=== PATIENT | male | born 1965 | race Caucasian/White ===

== ENCOUNTER 2022-06-20 17:12 | Inpatient (IN) ==
[2022-06-20] MEDS ORDERED: ASPIRIN CHEW 324 MG ONE (17:34)
[2022-06-20 17:40] LABS: Basophils # (auto) 0.03 K/uL (0-0.2); Basophils % (auto) 0.4 %; Eosinophils # (auto) 0.07 K/uL (0-0.50); Hematocrit (blood only) 45.7 % (40.1-51.0); Hemoglobin 15.8 g/dl (14.0-18.0); Immature Granulocytes # (auto) 0.02 K/uL (0.00-0.02); Immature Granulocytes % (auto) 0.3 %; Lymphocytes # (auto) 1.43 K/uL (1.2-3.4); Lymphocytes % (auto) 20.7 %; Mean Corpuscular Hemoglobin 35.1 pg (25.0-34.0); Mean Corpuscular Hgb Conc 34.6 g/dL (32.0-36.0); Mean Corpuscular Volume 101.6 fL (80.0-100.0); Mean Platelet Volume 8.4 fL (9.4-12.4); Monocytes # (auto) 0.61 K/uL (0.24-0.82); Monocytes % (auto) 8.8 %; Neutrophils # (auto) 4.75 K/uL (1.4-6.5); Neutrophils % (auto) 68.8 %; Platelet Count 263 K/uL (130-400); RDW Coefficient of Variation 13.1 % (11.5-14.5); RDW Standard Deviation 48.9 fL (36.4-46.3); White Blood Count 6.91 K/ul (4.8-10.8)
[2022-06-20 18:02] LABS: Albumin Globulin Ratio 1.4 (0.9-2); Albumin Level 4.6 gm/dl (3.4-5.0); BUN Creatinine Ratio 15.6 (10-20); Calcium 9.7 mg/dl (8.5-10.1); Creatinine Clr Calc Pharmacy 76.9 ml/min; Est GFR (Non-African American) 61.3 ml/min; Globulin 3.3 gm/dl (2.5-4.0); Potassium 4.3 mmol/L (3.5-5.1); Total Protein 7.9 gm/dl (6.0-8.3)
--- NOTE | 2022-06-20 18:07 | XRay Report ---
XR chest 1V portable CLINICAL HISTORY: Atypical chest pain. COMPARISON STUDY: No previous studies for comparison. FINDINGS: Lung volumes are normal. Minimal right basilar opacity favors atelectasis. There is no pneu mothorax or pleural effusion. Cardiac size is normal. Mediastinal contours are normal. There is no ev idence for pulmonary edema. Postoperative findings within the right shoulder are incidentally noted. IMPRESSION: No acute cardiopulmonary findings. ACT 112: Negative or not required by law. Electronically signed by: Rosalio Kline M.D. 06/20/2022 6:05 PM
--- NOTE | 2022-06-20 20:32 | Emergency Department Note ---
Impression & Plan Acute electrocardiogram changes, Syncope Admit to the [facility] ED Provider Note NAME: CLAUDETTE LARIOS AGE: 57 SEX: M ARRIVES VIA: Ambulance INFORMANT: Patient ED PROVIDER(S): Marilee Bajwa DO CHIEF COMPLAINT: Syncope; nausea PLAN: Disposition: Admit to the [facility] Condition: Guarded MEDICAL DECISION MAKING: This is a 57-year-old male patient presents to the emergency department after an episode of syncope. In route to the hospital, EMS captured a twelve-lead EKG with ST segment elevation in the inferior leads concerning for a STEMI. Upon arrival in the emergency department, those ST segment changes had returned back to baseline. Patient never had chest pressure or chest pain. While I was examining the patient upon his initial arrival and placed on the weir fisherman, he did have ST segment elevation in lead II but this again returned to baseline before a twelve-lead EKG could be captured. Ppatient does have a dramatic family history of coronary artery disease as his father had his first myocardial infarction at age 50 and his brother had four-vessel bypass at age 54. The patient has had 2 stress tests which were both negative. First troponin here in the emergency department is within normal range but I remain concerned about the patient's syncopal event and the twelve-lead EKG captured by EMS. I have discussed the case with the [facility] and they will evaluate for further management. Triage Nursing notes reviewed and agree with them. Additional history obtained from EMS Vital Signs: reviewed and remarkable for mild hypertension Differential diagnosis: Cardiac dysrhythmia, vasovagal syncope, STEMI, NSTEMI ER treatment provided: Baby aspirin Diagnostics interpreted by me: ECG: Normal sinus rhythm at a rate of [address] segment elevation in the inferior leads. Cardiac Monitoring: Normal sinus rhythm at a rate of 72 Laboratory studies: Imaging studies: As per my interpretation Portable chest x-ray: No acute pulmonary infiltrates or cardiomegaly HPI: 57/M arrives for evaluation of syncope. The patient was at a bar when he began to feel sweaty and nauseated. The patient got up to walk to the door when he had a syncopal event. He fell to the ground hitting the right side of his face. Upon awakening, he felt lightheaded and as if he had to have a bowel movement. He went to the bathroom and had diarrhea. The patient continued to feel weak. EMS was called. Upon their arrival, the patient was feeling fine but wanted transport to the hospital. During transport, the patient began to feel nauseated and diaphoretic again. At that time, they did a twelve-lead EKG which showed ST segment elevation in the inferior leads consistent with a STEMI. ROS: See above HPI for pertinent positives & negatives. A total of 10 systems reviewed and were otherwise negative. PAST MEDICAL HISTORY:Hypercholesterolemia; hypertension PAST SURGICAL HISTORY:See Below FAMILY HISTORY:See Below SOCIAL HISTORY:See Below HOME MEDICATIONS:See list ALLERGIES:None VITALS:See Below PHYSICAL EXAMINATION: HEENT: Head - normocephalic and atraumatic. Pupils are equal, round, and reactive to light. Extraocular eye muscles are intact, and sclera are anicteric. Nose - moist nasal mucosa without discharge. Mouth - moist buccal mucosa. Oropharynx is nonerythematous and there is no tonsillar exudate or edema noted. Neck: Supple; no JVD, nuchal rigidity, cervical lymphadenopathy, or auscultated bruits. Heart: Regular rate and rhythm. There is a normal S1 and S2 with no murmurs, clicks, or gallops appreciated. Lungs: Clear to auscultation bilaterally with no wheezes, rales, or rhonchi. Abdomen: Soft, completely nontender, nondistended, with good bowel sounds. There are no palpable pulsatile masses or hepatosplenomegaly. There is no guarding, rigidity, or rebound noted. Extremities: No evidence of cyanosis, clubbing, or edema. There are easily palpable peripheral pulses. Skin: warm and dry with good turgor and no rashes. ED COURSE: Times/Reassessments: 1720: Patient was evaluated in A2. A complete history and physical was performed. While I was examining the patient, it was obvious the patient had significant ST segment elevation in lead II on the monitor. This resolved before we could obtain a twelve-lead EKG. A twelve-lead EKG was obtained. An order was placed for continuous cardiac monitoring. The patient was in a normal sinus rhythm at a rate of 72. Patient was given 4 baby aspirin. A chest x-ray was obtained. The patient had no further episodes of diaphoresis, lightheadedness, or nausea. I discussed the case with the [facility] Hospitalist and they will evaluate for further management. Marilee Bajwa DO Past Med/Surg History Social History Smoking Status: Never smoker Hx Alcohol Use: Yes Alcohol type: beer, wine and hard liquor Hx Substance Use: No Preferred Language: Pakistani Communication Ability: Effective [employer] Aide Required: No Beliefs That Will Affect Care: None Current Living Situation: Spouse Other Information That Helps Us Care for You: No Feels Safe at Home: Yes Safety Concerns: Feels Safe At This Time Assistive Devices: Glasses Allergies Allergies Allergy/AdvReac Type Severity Reaction Status Date / Time No Known Allergies Allergy Unverified 06/20/22 20:16 Home Meds Home Medications Medication Instructions Recorded Confirmed atorvastatin 20 mg tablet 20 mg PO DAILY 06/20/22 06/20/22 duloxetine 30 mg capsule,delayed 30 mg PO DAILY 06/20/22 06/20/22 release fluticasone propionate 50 2 spray intranasal QAM 06/20/22 06/20/22 mcg/actuation nasal spray,suspension furosemide 20 mg tablet 10 mg PO DAILY 06/20/22 06/20/22 losartan 50 mg tablet 50 mg PO QAM 06/20/22 06/20/22 Results & Data (ED) Vital Signs Vital Signs - 24 hr 06/20/22 17:04 06/20/22 17:04 06/20/22 17:04 Temperature 36.8 C Temperature Source Oral Pulse Rate 68 68 Pulse Rate [Apical] Pulse Rate from SpO2 Sensor Pulse Rhythm Regular Respiratory Rate 20 20 Respiratory Effort / Characteristics Non-Labored Respiratory Depth Normal Blood Pressure 148/96 H Blood Pressure [Right Arm] Blood Pressure Mean 113 Blood Pressure Mean [Right Arm] Pulse Oximetry 95 95 95 Oxygen Delivery Method Room Air Room Air Room Air Sepsis Recent Fever Within 48 Hours No Sepsis New/Unexplained Change in Mental Status Yes Sepsis Action Taken by Nursing No Action Required Oxygen Flow Rate - Titration 06/20/22 17:54 06/20/22 17:54 06/20/22 18:59 Temperature Temperature Source Pulse Rate 87 70 Pulse Rate [Apical] Pulse Rate from SpO2 Sensor 70 Pulse Rhythm Regular Respiratory Rate 20 24 Respiratory Effort / Characteristics Respiratory Depth Blood Pressure Blood Pressure [Right Arm] Blood Pressure Mean Blood Pressure Mean [Right Arm] Pulse Oximetry 95 96 95 Oxygen Delivery Method Room Air Room Air Sepsis Recent Fever Within 48 Hours Sepsis New/Unexplained Change in Mental Status Sepsis Action Taken by Nursing Oxygen Flow Rate - Titration 2 06/20/22 19:00 06/20/22 20:00 Temperature Temperature Source Pulse Rate Pulse Rate [Apical] 72 Pulse Rate from SpO2 Sensor Pulse Rhythm Respiratory Rate 20 Respiratory Effort / Characteristics Non-Labored Respiratory Depth Normal Blood Pressure 159/94 H Blood Pressure [Right Arm] 152/94 H Blood Pressure Mean 115 Blood Pressure Mean [Right Arm] 113 Pulse Oximetry 96 Oxygen Delivery Method Room Air Sepsis Recent Fever Within 48 Hours Sepsis New/Unexplained Change in Mental Status Sepsis Action Taken by Nursing Oxygen Flow Rate - Titration Laboratory Data Result diagrams: 06/21/22 06:09 06/21/22 06:09 Lab Results 06/20/22 06/20/22 06/20/22 Range/Units 17:25 17:25 17:25 WBC 6.91 (4.8-10.8) K/ul RBC 4.50 L (4.63-6.08) M/uL Hgb 15.8 (14.0-18.0) g/dl Hct 45.7 (40.1-51.0) % MCV 101.6 H (80.0-100.0) fL MCH 35.1 H (25.0-34.0) pg MCHC 34.6 (32.0-36.0) g/dL RDW Std Deviation 48.9 H (36.4-46.3) fL RDW Coeff of Kathleen 13.1 (11.5-14.5) % Plt Count 263 (130-400) K/uL MPV 8.4 L (9.4-12.4) fL Immature Gran % (Auto) 0.3 % Neut % (Auto) 68.8 % Lymph % (Auto) 20.7 % Jewell % (Auto) 8.8 % Eos % (Auto) 1.0 % Baso % (Auto) 0.4 % Neut # (Auto) 4.75 (1.4-6.5) K/uL Lymph # (Auto) 1.43 (1.2-3.4) K/uL Jewell # (Auto) 0.61 (0.24-0.82) K/uL Eos # (Auto) 0.07 (0-0.50) K/uL Baso # (Auto) 0.03 (0-0.2) K/uL Immature Gran # (Auto) 0.02 (0.00-0.02) K/uL Sodium 138 (136-145) mmol/L Potassium 4.3 (3.5-5.1) mmol/L Chloride 102 (98-107) mmol/L Carbon Dioxide 26 (21-32) mmol/L Anion Gap 10 (3-11) BUN 20 (6-23) mg/dl Creatinine 1.28 (0.6-1.4) mg/dl Est Cr Clr Drug Dosing 76.9 ml/min Est GFR ( Amer) 71.0 ml/min Est GFR (Non-Af Amer) 61.3 ml/min BUN/Creatinine Ratio 15.6 (10-20) Glucose 129 H (70-99(Fasting)) mg/dl Calcium 9.7 (8.5-10.1) mg/dl Magnesium 1.9 (1.7-2.4) mg/dl Total Bilirubin 1.0 (0.2-1.0) mg/dl AST 39 (13-39) U/L ALT 55 H (7-52) U/L Alkaline Phosphatase 81 (34-104) U/L Troponin I High Sens 18.0 (0-20) pg/ml Total Protein 7.9 (6.0-8.3) gm/dl Albumin 4.6 (3.4-5.0) gm/dl Globulin 3.3 (2.5-4.0) gm/dl Albumin/Globulin Ratio 1.4 (0.9-2) Lipase 36 (11-82) U/L SARS-CoV-2, RNA, NAAT (NEGATIVE) 06/20/22 06/20/22 Range/Units 19:15 20:37 WBC (4.8-10.8) K/ul RBC (4.63-6.08) M/uL Hgb (14.0-18.0) g/dl Hct (40.1-51.0) % MCV (80.0-100.0) fL MCH (25.0-34.0) pg MCHC (32.0-36.0) g/dL RDW Std Deviation (36.4-46.3) fL RDW Coeff of Kathleen (11.5-14.5) % Plt Count (130-400) K/uL MPV (9.4-12.4) fL Immature Gran % (Auto) % Neut % (Auto) % Lymph % (Auto) % Jewell % (Auto) % Eos % (Auto) % Baso % (Auto) % Neut # (Auto) (1.4-6.5) K/uL Lymph # (Auto) (1.2-3.4) K/uL Jewell # (Auto) (0.24-0.82) K/uL Eos # (Auto) (0-0.50) K/uL Baso # (Auto) (0-0.2) K/uL Immature Gran # (Auto) (0.00-0.02) K/uL Sodium (136-145) mmol/L Potassium (3.5-5.1) mmol/L Chloride (98-107) mmol/L Carbon Dioxide (21-32) mmol/L Anion Gap (3-11) BUN (6-23) mg/dl Creatinine (0.6-1.4) mg/dl Est Cr Clr Drug Dosing ml/min Est GFR ( Amer) ml/min Est GFR (Non-Af Amer) ml/min BUN/Creatinine Ratio (10-20) Glucose (70-99(Fasting)) mg/dl Calcium (8.5-10.1) mg/dl Magnesium (1.7-2.4) mg/dl Total Bilirubin (0.2-1.0) mg/dl AST (13-39) U/L ALT (7-52) U/L Alkaline Phosphatase (34-104) U/L Troponin I High Sens 17.9 (0-20) pg/ml Total Protein (6.0-8.3) gm/dl Albumin (3.4-5.0) gm/dl Globulin (2.5-4.0) gm/dl Albumin/Globulin Ratio (0.9-2) Lipase (11-82) U/L SARS-CoV-2, RNA, NAAT NEGATIVE (NEGATIVE) Administered Medications Atorvastatin Calcium (Atorvastatin 20 Mg Tab) 20 mg PO DAILY [facility]NA Stop: 07/21/22 08:59 Last Admin: 06/21/22 09:26 Dose: 20 mg Documented By: CADENCE Duloxetine HCl (Duloxetine Hcl 30 Mg Cap) 30 mg PO DAILY AMNA Stop: 07/21/22 08:59 Last Admin: 06/21/22 09:27 Dose: 30 mg Documented By: CADENCE Fluticasone Propionate (Fluticasone Propionate Na Spr 16 Gm Btl) 2 sprays NA QAM [facility] Stop: 07/21/22 08:59 Last Admin: 06/21/22 09:27 Dose: 2 sprays Documented By: CADENCE Furosemide (Furosemide 20 Mg Tab) 10 mg PO DAILY [facility] Stop: 07/21/22 08:59 Last Admin: 06/21/22 09:27 Dose: 10 mg Documented By: CADENCE Heparin Sodium/Dextrose (Heparin Sodium/Dextrose) 25,000 units in 500 mls @ 0 mls/hr IV .Q0M AMNA; Protocol Stop: 07/20/22 22:14 Last Titration: 06/21/22 11:29 Dose: 0 units/hr, 0 mls/hr Documented By: CADENCE Co-signed By: ELVA Titration: 06/21/22 09:31 Dose: 0 units/hr, 0 mls/hr Documented By: CADENCE Co-signed By: ELVA Titration: 06/21/22 06:58 Dose: 1,550 units/hr, 31 mls/hr Documented By: TORRES Co-signed By: CADENCE Admin: 06/20/22 23:33 Dose: 1,550 units/hr, 31 mls/hr Documented By: TORRES Co-signed By: VK Sodium Chloride (Nss 1000ml) 1,000 mls @ 80 mls/hr IV .[id number] [facility] Stop: 06/21/22 23:44 Last Infusion: 06/21/22 11:21 Dose: 80 mls/hr Documented By: Infusion: 06/21/22 09:30 Dose: 0 mls/hr Documented By: Admin: 06/20/22 23:41 Dose: 80 mls/hr Documented By: TORRES Losartan Potassium (Losartan Potassium 50 Mg Tab) 50 mg PO QAM [facility] Stop: 07/21/22 08:59 Last Admin: 06/21/22 09:28 Dose: 50 mg Documented By: CADENCE Discontinued Medications Aspirin (Aspirin Chew 324 Mg) Confirm Administered Dose 324 mg .ROUTE .STK-MED ONE Stop: 06/20/22 17:35 Last Admin: 06/20/22 17:34 Dose: 324 mg Documented By: MARY Fentanyl Citrate (Fentanyl Citrate 100 Mcg/2 Ml Vial) Confirm Administered Dose 100 mcg .ROUTE .STK-MED ONE Stop: 06/21/22 10:04 Last Increment: 06/21/22 10:29 Dose: 12.5 mcg Documented By: LIZBETH Heparin Sodium (Porcine) (Heparin Sod (Porcine) 1000 Unit/Ml) 7,000 units IV NOW ONE Stop: 06/20/22 22:46 Last Admin: 06/20/22 23:35 Dose: 7,000 units Documented By: [facility] Co-signed By: MANSOOR Heparin Sodium (Porcine) (Heparin (Porcine) 1000 Unit/Ml 10 Ml (Dental Aide Use Only)) Confirm Administered Dose 10,000 units .ROUTE .STK-MED ONE Stop: 06/21/22 10:03 Last Admin: 06/21/22 10:28 Dose: Not Given Documented By: LIZBETH Heparin Sodium/Sodium Chloride (Heparin In Nss Infusion 1000 Unit/500 Ml (2 U/Ml) Bag) Confirm Administered Dose 3,000 units IV .STK-MED ONE Stop: 06/21/22 10:04 Last Admin: 06/21/22 10:29 Dose: 3,000 units Documented By: LIZBETH Midazolam HCl (Midazolam Hcl 1 Mg/Ml 2ml Vial) Confirm Administered Dose 2 mg .ROUTE .STK-MED ONE Stop: 06/21/22 10:04 Last Increment: 06/21/22 10:29 Dose: 1 mg Documented By: LIZBETH Nicardipine HCl (Nicardipine Hcl Inj 2.5 Mg/Ml 10 Ml Amp) Confirm Administered Dose 25 mg .ROUTE .STK-MED ONE Stop: 06/21/22 10:03 Last Admin: 06/21/22 10:29 Dose: 25 mg Documented By: LIZBETH Nitroglycerin/Dextrose (Nitroglycerin/D5w 100mcg/Ml 20ml Syr) Confirm Administe red Dose 2,000 mcg .ROUTE .STK-MED ONE Stop: 06/21/22 10:04 Last Admin: 06/21/22 10:29 Dose: 2,000 mcg Documented By: MSD Imaging Data Radiologist's Impression: Chest X-Ray 06/20/22 17:25 XR chest 1V portable CLINICAL HISTORY: Atypical chest pain. COMPARISON STUDY: No previous studies for comparison. FINDINGS: Lung volumes are normal. Minimal right basilar opacity favors atelectasis. There is no pneumothorax or pleural effusion. Cardiac size is normal. Mediastinal contours are normal. There is no evidence for pulmonary edema. Postoperative findings within the right shoulder are incidentally noted. IMPRESSION: No acute cardiopulmonary findings. ACT 112: Negative or not required by law. Electronically signed by: Rosalio Kline M.D. 06/20/2022 6:05 PM Discharge Plan Visit Data Chief Complaint: Syncope Stated Complaint: syncope ED Provider: Marilee Bajwa Discharge Problem: Acute electrocardiogram changes, Syncope Patient Disposition: Admitted As Inpatient Discharge Instructions Interventions: ED Discharge Assessment Last Done: 06/20/22 21:56
[2022-06-20] MEDS ORDERED: Heparin IV Adult Wt-Based Standard WITH Bolus Protocol IV SCH (21:49)
[2022-06-20] MEDS ORDERED: HEPARIN SODIUM/DEXTROSE 25,000 UNITS/500 ML BAG IV SCH (22:15)
[2022-06-20 22:27] LABS: INR 1.2 (0.9-1.1); Partial Thromboplastin Ratio 0.9; Partial Thromboplastin Time 24.8 Seconds (21.0-31.0); Prothrombin Time 12.3 Seconds (9.0-12.0)
[2022-06-20] MEDS ORDERED: HEPARIN SOD (PORCINE) 1000 UNIT/ML IV ONE (22:45)
[2022-06-20] MEDS ORDERED: ACETAMINOPHEN 325 MG TAB PO PRN (22:45)
[2022-06-20] MEDS ORDERED: NITROGLYCERIN SL 0.4 MG/TAB TAB SL PRN (22:45)
[2022-06-20] MEDS ORDERED: ONDANSETRON INJ 2 MG/ML 2 ML VIAL IV PRN (22:45)
--- NOTE | 2022-06-20 22:59 | History and Physical Report ---
DATE OF ADMISSION: 06/20/2022. CHIEF COMPLAINT: Syncope. HISTORY OF PRESENT ILLNESS: This is a 57-year-old male with past medical history significant for allergic rhinitis, GERD, who presents with syncope. The patient says he was at a bar when he felt nauseous and diaphoretic. He went out and sat in chair when he suddenly remembered people helping him, made him lie down, someone told him that he was clenching his fist. Then he had an episode of diarrhea. The EMS was called in and he was on the way again felt nauseous and sweating. The EMS told him that his blood pressure was low, got an EKG, showed some ST elevations in the inferior leads and when he came to the ER, in the monitor, there were some ST elevations, by the time the EKG was done St elevations were improving. The patient is currently asymptomatic, resting comfortably, hemodynamically stable. Denies any headache. No dizziness, no blurred visions, no double visions, no earache, no runny nose, no sore throat, no cough, no difficulty swallowing. Appetite is okay. No chest pain, no shortness of breath. Currently, no nausea, no abdominal pain. Normal bowel and bladder movements. No swelling in the legs. No orthopnea. Otherwise, ambulates okay. The patient says he has stress test before the pandemic, which was unremarkable. He also had cardiac CT in January 2021, which showed some focal calcified plaque with luminal stenosis in the range of 20-30% in the mid LAD and proximal circumflex coronary artery, focal calcified plaques in the range of 20- 30%.Family history is significant for father had ID in his 50s and brother had CABG. ALLERGIES: No known drug allergies. PAST MEDICAL HISTORY: As mentioned above. PAST SURGICAL HISTORY: Colonoscopy, lumbosacral steroid shot, knee arthroscopy, repair of shoulder dislocation. MEDICATIONS: The patient is on atorvastatin 20 mg p.o. daily, duloxetine 30 mg p.o. daily, Flonase 2 sprays intranasal daily, Lasix 20 mg p.o. daily, losartan 50 mg p.o. daily. FAMILY HISTORY: Significant for father had ID in the late 50s. Brother had CABG. Mother had cancer and stroke. Maternal grandmother had diabetes. SOCIAL HISTORY: , no smoking. Alcohol, daily beer. No drug use. REVIEW OF SYSTEMS: As per HPI. Rest of the review of systems is negative. PHYSICAL EXAMINATION: GENERAL: The patient is of moderate build, not in acute distress. VITAL SIGNS: Temperature 36.8, pulse 72, respiratory rate 20, blood pressure 152/94, oxygen 96% on room air. HEENT: Pupils equal, round and reactive to light. Oral mucosa moist. NECK: No JVD, no neck masses. CARDIOVASCULAR: S1 and S2 heard. Regular rate and rhythm. No murmur, no gallop. RESPIRATORY SYSTEM: Normal AP diameter. No accessory muscle use. No wheezing, no crackles. ABDOMEN: Soft, bowel sounds present, nontender, no distention. CENTRAL NERVOUS SYSTEM: Cranial nerves II-XII grossly intact, nonfocal. EXTREMITIES: No edema, no erythema. LABORATORY DATA: WBC 6.9, hemoglobin 15.8, hematocrit 45.7, platelets 263. Sodium 138, potassium 4.3, chloride 102, bicarbonate 26, BUN 20, creatinine 1.2, serum glucose 129, calcium 9.7, magnesium 1.9, total bilirubin 1.0. AST 39, ALT 55, alkaline phosphatase 81, lipase 36. SARS-CoV-2 rapid test negative. IMAGING DATA: Chest x-ray, no acute cardiopulmonary findings. EKG: Showing normal sinus rhythm at a rate of 72, nonspecific ST abnormalities. ASSESSMENT AND PLAN: This is a 57-year-old male who presents with syncope and ST changes. 1. Syncope: , Gentle fluids.monitor in tele, serial enzymes, echo, and consult cardiology. 2. Transient ST-elevation in inferior leads: St elevations for EMS. Initial ekg st elevations were still some what present but improving. repeat EKG much improved. Cardiology recommended iv heparin. . The patient is asymptomatic. Troponin is negative. Follow serial cardiac enzymes.NPO. Echo and cardiac cath as per cardiology. 4. Hyperlipidemia: Continue statin. Follow lipid profile. 5. Depression: Continue duloxetine. 6. Hypertension: On losartan. We will monitor the blood pressure. 7. Deep venous thrombosis prophylaxis: SCDs for now. DISPOSITION: Admit to tele floor. PT, OT prior to discharge. Social service to help with discharge planning. Job ID: [id number] [facility]
[2022-06-20] MEDS: SODIUM CHLORIDE 0.9% 1000ML 1,000 ML IV SCH (23:41)
[2022-06-21 06:43] LABS: Basophils # (auto) 0.02 K/uL (0-0.2); Basophils % (auto) 0.3 %; Eosinophils # (auto) 0.13 K/uL (0-0.50); Hematocrit (blood only) 42.4 % (40.1-51.0); Hemoglobin 14.8 g/dl (14.0-18.0); Immature Granulocytes # (auto) 0.02 K/uL (0.00-0.02); Immature Granulocytes % (auto) 0.3 %; Lymphocytes # (auto) 1.58 K/uL (1.2-3.4); Lymphocytes % (auto) 24.6 %; Mean Corpuscular Hemoglobin 35.6 pg (25.0-34.0); Mean Corpuscular Hgb Conc 34.9 g/dL (32.0-36.0); Mean Corpuscular Volume 101.9 fL (80.0-100.0); Mean Platelet Volume 8.6 fL (9.4-12.4); Monocytes # (auto) 0.52 K/uL (0.24-0.82); Monocytes % (auto) 8.1 %; Neutrophils # (auto) 4.16 K/uL (1.4-6.5); Neutrophils % (auto) 64.7 %; Platelet Count 254 K/uL (130-400); RDW Coefficient of Variation 13.3 % (11.5-14.5); RDW Standard Deviation 50.3 fL (36.4-46.3); Red Blood Count 4.16 M/uL (4.63-6.08); White Blood Count 6.43 K/ul (4.8-10.8)
[2022-06-21 07:03] LABS: BUN Creatinine Ratio 19.4 (10-20); Calcium 8.7 mg/dl (8.5-10.1); Chol HDL Ratio 3.6 (0-5); Creatinine Clr Calc Pharmacy 94.3 ml/min; Est GFR (African American) 92.4 ml/min; Est GFR (Non-African American) 79.7 ml/min; Magnesium 1.9 mg/dl (1.7-2.4); Potassium 3.8 mmol/L (3.5-5.1)
[2022-06-21 07:06] LABS: Troponin I High Sensitivity 16.9 pg/ml (0-20)
[2022-06-21 07:10] LABS: Partial Thromboplastin Ratio 2.2
[2022-06-21 07:13] LABS: Partial Thromboplastin Time 60.3 Seconds (21.0-31.0)
--- NOTE | 2022-06-21 08:43 | Electrocardiogram Report ---
Test Reason : Blood Pressure : / mmHG Vent. Rate : 074 BPM Atrial Rate : 074 BPM P-R Int : 118 ms QRS Dur : 098 ms QT Int : 412 ms P-R-T Axes : 032 065 057 degrees QTc Int : 457 ms Poor data quality, interpretation may be adversely affected Sinus rhythm with Premature supraventricular complexes and Premature ventricular complexes Abnormal ECG No previous ECGs available Confirmed by Bairon Seo ([id number]) on 06/21/2022 8:43:09 AM Referred By: REFERRED SELF Confirmed By:Bairon Seo
--- NOTE | 2022-06-21 08:45 | Electrocardiogram Report ---
Test Reason : Blood Pressure : / mmHG Vent. Rate : 072 BPM Atrial Rate : 072 BPM P-R Int : 134 ms QRS Dur : 098 ms QT Int : 418 ms P-R-T Axes : 024 051 067 degrees QTc Int : 457 ms Normal sinus rhythm Minor ST elevation in Inferior leads Abnormal ECG When compared with ECG of 20-JUN-2022 17:16, Premature supraventricular complexes are no longer Present Premature ventricular complexes no longer present Confirmed by Bairon Seo ([id number]) on 06/21/2022 8:45:23 AM Referred By: REFERRED SELF Confirmed By:Bairon Seo
--- NOTE | 2022-06-21 08:47 | Electrocardiogram Report ---
Test Reason : Blood Pressure : / mmHG Vent. Rate : 074 BPM Atrial Rate : 074 BPM P-R Int : 166 ms QRS Dur : 092 ms QT Int : 464 ms P-R-T Axes : 056 036 047 degrees QTc Int : 515 ms Poor data quality, interpretation may be adversely affected Sinus rhythm with Premature atrial complexes Minor ST elevation in Inferior leads Abnormal ECG When compared with ECG of 20-JUN-2022 17:34, Premature atrial complexes are now Present Confirmed by Bairon Seo ([id number]) on 06/21/2022 8:46:39 AM Referred By: REFERRED SELF Confirmed By:Bairon Seo
--- NOTE | 2022-06-21 08:49 | Electrocardiogram Report ---
Test Reason : Blood Pressure : / mmHG Vent. Rate : 068 BPM Atrial Rate : 068 BPM P-R Int : 144 ms QRS Dur : 098 ms QT Int : 436 ms P-R-T Axes : 033 039 050 degrees QTc Int : 463 ms Normal sinus rhythm Normal ECG When compared with ECG of 20-JUN-2022 21:57, Premature atrial complexes are no longer Present Minor ST elevation in Inferior leads no longer present Confirmed by Bairon Seo ([id number]) on 06/21/2022 8:49:03 AM Referred By: REFERRED SELF Confirmed By:Bairon Seo
[2022-06-21] MEDS: ATORVASTATIN 20 MG TAB PO SCH (09:26)
[2022-06-21] MEDS: FUROSEMIDE 20 MG TAB PO SCH (09:27)
[2022-06-21] MEDS: DULoxetine HCL 30 MG CAP PO SCH (09:27)
[2022-06-21] MEDS: FLUTICASONE PROPIONATE NA SPR 16 GM BTL SCH (09:27)
[2022-06-21] MEDS: LOSARTAN POTASSIUM 50 MG TAB PO SCH (09:28)
--- NOTE | 2022-06-21 09:53 | Pre Anesthesia Assessment ---
Date of Service June 21, 2022 Pre Sedation Assessment Vital Signs Temp Pulse Pulse Resp BP BP Pulse Ox 06/21/22 09:47 70 16 132/85 98 06/21/22 07:00 67 06/21/22 07:39 36.9 C 74 18 163/90 H 99 06/21/22 03:30 36.6 C 70 18 129/84 97 06/21/22 01:36 72 06/20/22 22:48 36.9 C 79 18 154/90 H 96 06/20/22 22:06 76 20 96 06/20/22 21:56 78 20 149/105 H 96 06/20/22 20:00 72 20 152/94 H 96 06/20/22 19:00 159/94 H 06/20/22 18:59 70 24 95 06/20/22 17:54 96 06/20/22 17:54 87 20 95 06/20/22 17:04 95 06/20/22 17:04 68 20 95 06/20/22 17:04 36.8 C 68 20 148/96 H 95 O2 Del Method 06/21/22 09:47 Room Air 06/21/22 07:00 06/21/22 07:39 Room Air 06/21/22 03:30 06/21/22 01:36 06/20/22 22:48 Room Air 06/20/22 22:06 Room Air 06/20/22 21:56 Room Air 06/20/22 20:00 Room Air 06/20/22 19:00 06/20/22 18:59 06/20/22 17:54 Room Air 06/20/22 17:54 Room Air 06/20/22 17:04 Room Air 06/20/22 17:04 Room Air 06/20/22 17:04 Room Air Cardiovascular RRR, no murmur, no edema Respiratory normal respiratory effort, lungs clear to auscultation Pre-Sedation Airway Assessment Smoking Status: Never smoker Short, Thick Neck: No Thyromental Distance: > or= 3.5 Finger Breadths Oral Cavity: + WNL Mallampati Class: III ASA: ASA3 NPO Status Date of Last Intake of Fluids: 06/20/22 Time of Last Intake of Fluids: 20:00 Date of Last Intake of Solid Food: 06/20/22 Time of Last Intake of Solid Foods: 20:00 Procedure Planning Contraindications for Sedation: none Current Medications Reviewed: Yes Notes The planned sedation has been discussed with the patient. Informed Consent was obtained. I have identified the patient, determined the appropriateness of sedation and have assessed the patient immediately prior to the procedure. All medicine(s) and interventions are by my order.
[2022-06-21] MEDS ORDERED: HEPARIN (PORCINE) 1000 UNIT/ML 10 ML (CATH LAB USE ONLY) ONE (10:02)
[2022-06-21] MEDS ORDERED: niCARdipine HCL INJ 2.5 MG/ML 10 ML AMP ONE (10:02)
[2022-06-21] MEDS ORDERED: MIDAZOLAM HCL 1 MG/ML 2ML VIAL ONE (10:03)
[2022-06-21] MEDS ORDERED: NITROGLYCERIN/D5W 100MCG/ML 20ML SYR ONE (10:03)
[2022-06-21] MEDS ORDERED: fentaNYL citrate 100 MCG/2 ML VIAL ONE (10:03)
--- NOTE | 2022-06-21 10:05 | Cardiology Consultation ---
Date of Consultation June 21, 2022 Assessment & Plan (1) ST elevation: (2) HTN (hypertension): (3) Hyperlipidemia: Plan Patient is a 57-year-old male with multiple cardiovascular risk factors including age gender family history hypertension hyperlipidemia and known moderate coronary atherosclerosis by prior coronary CT presents following syncopal spell preceded by chest pressure and diaphoresis. In route and ambulance had transient dynamic ST segment changes with ST elevation in inferior leads and ambulance and shortly after arrival in ER which promptly resolved. Findings concerning for acute coronary process. Coronary spasm or chronic vessel occlusion with transient hypotension possible but suspicious for coronary artery disease despite negative troponins Discussed in detail with patient will refer for diagnostic coronary angiography. Procedure and risks explained in detail to the patient and informed consent obtained. History of Present Illness Reason for Consultation: Syncope, abnormal EKG telemetry with ST elevation Requesting Physician: Dr. Flores Attending Physician: Bradley Flores MD History of Present Illness Patient is a 57-year-old male with history of hypertension, hyperlipidemia, moderate coronary atherosclerosis by prior coronary CT and family history of coronary artery disease who last night suffered a witnessed syncopal event while drinking at a bar. He noted initial symptoms of chest pressure and indigestion and diaphoresis attempted to walk out and suffered a transient syncopal event. He aroused with generalized weakness and malaise and paramedics were summoned. He had an additional episode of diaphoresis and nausea in route and ambulance with associated ST elevation on EKG. On ER presentation, telemetry also notable for ST elevation which resolved after aspirin administration. Currently comfortable notes no chest pains, tachypalpitations, syncope or near syncope. No fevers chills or unexplained infections. No prior difficulties with contrast administration. No history of prior myocardial infarction or congestive heart failure. No history of valvular heart disease. Patient is not diabetic No upcoming surgeries or plans for procedures Patient relatively sedate about home and job history notable for significant alcohol intake 6 pack or greater /day daily EKG on initial ER presentation with [address] elevation 2 3 and aVF which resolved. No evolution on EKGs this morning. Troponins initially negative. Patient appropriately anticoagulated Allergies Allergy/AdvReac Type Severity Reaction Status Date / Time No Known Allergies Allergy Unverified 06/20/22 20:16 Home Medications Medication Instructions Recorded Confirmed Type atorvastatin 20 mg tablet 20 mg PO DAILY 06/20/22 06/20/22 History duloxetine 30 mg capsule,delayed 30 mg PO DAILY 06/20/22 06/20/22 History release fluticasone propionate 50 2 spray intranasal QAM 06/20/22 06/20/22 History mcg/actuation nasal spray,suspension furosemide 20 mg tablet 10 mg PO DAILY 06/20/22 06/20/22 History losartan 50 mg tablet 50 mg PO QAM 06/20/22 06/20/22 History Patient History Social History Smoking Status: Never smoker Hx Alcohol Use: Yes Alcohol type: beer, wine and hard liquor Hx Substance Use: No Preferred Language: Georgian Communication Ability: Effective Chlorination Operator Required: No Beliefs That Will Affect Care: None Current Living Situation: Spouse Other Information That Helps Us Care for You: No Feels Safe at Home: Yes Safety Concerns: Feels Safe At This Time Assistive Devices: Glasses Review of Systems Review of Systems: All systems reviewed & are unremarkable except as noted in HPI & below Physical Exam Constitutional: WD/WN, vitals as above + obese Face flushed Eyes: PERRL, conjunctivae normal, anicteric sclerae ENMT: external ear and nose normal, oropharynx normal Mild contusion right tenriism Neck: trachea midline, no thyromegaly Respiratory: normal respiratory effort, lungs clear to auscultation Cardiovascular: Rate/Rhythm: regular rate and regular rhythm Heart Sounds: normal S1 and normal S2; no gallop and no murmur Palpation: normal PMI Vessels: normal carotid upstroke and radial pulses present; no JVD and no carotid bruit Extremities: no edema Gastrointestinal (Abdomen): normal bowel sounds, soft, nontender, no hepatosplenomegaly Musculoskeletal: no cyanosis or clubbing, extremities motor strength 5/5 Skin: no rashes, warm and dry Neurologic: PERRL, EOMI, accommodation nl, no face palsy, no dysarthria Psychiatric: A+Ox3, euthymic affect Results & Data ([facility]) Vital Signs (Past 12 Hours) Vital Signs Temp Pulse Pulse Resp BP Pulse Ox O2 Del Method 06/21/22 09:47 70 16 132/85 98 Room Air 06/21/22 07:00 67 06/21/22 07:39 36.9 C 74 18 163/90 H 99 Room Air 06/21/22 03:30 36.6 C 70 18 129/84 97 06/21/22 01:36 72 06/20/22 22:48 36.9 C 79 18 154/90 H 96 Room Air 06/20/22 22:06 76 20 96 Room Air Laboratory Results Laboratory Results - last 24 hr 06/20/22 06/20/22 06/20/22 17:25 17:25 17:25 WBC 6.91 RBC 4.50 L Hgb 15.8 Hct 45.7 MCV 101.6 H MCH 35.1 H MCHC 34.6 RDW Std Deviation 48.9 H RDW Coeff of Kathleen 13.1 Plt Count 263 MPV 8.4 L Immature Gran % (Auto) 0.3 Neut % (Auto) 68.8 Lymph % (Auto) 20.7 Garfield % (Auto) 8.8 Eos % (Auto) 1.0 Baso % (Auto) 0.4 Neut # (Auto) 4.75 Lymph # (Auto) 1.43 Garfield # (Auto) 0.61 Eos # (Auto) 0.07 Baso # (Auto) 0.03 Immature Gran # (Auto) 0.02 PT INR APTT PTT Ratio Sodium 138 Potassium 4.3 Chloride 102 Carbon Dioxide 26 Anion Gap 10 BUN 20 Creatinine 1.28 Est Cr Clr Drug Dosing 76.9 Est GFR ( Amer) 71.0 Est GFR (Non-Af Amer) 61.3 BUN/Creatinine Ratio 15.6 Glucose 129 H Calcium 9.7 Magnesium 1.9 Total Bilirubin 1.0 AST 39 ALT 55 H Alkaline Phosphatase 81 Troponin I High Sens 18.0 Total Protein 7.9 Albumin 4.6 Globulin 3.3 Albumin/Globulin Ratio 1.4 Triglycerides Cholesterol LDL Cholesterol, Calc VLDL Cholesterol, Calc HDL Cholesterol Cholesterol/HDL Ratio Lipase 36 SARS-CoV-2, RNA, NAAT 06/20/22 06/20/22 06/20/22 19:15 20:37 22:00 WBC RBC Hgb Hct MCV MCH MCHC RDW Std Deviation RDW Coeff of Kathleen Plt Count MPV Immature Gran % (Auto) Neut % (Auto) Lymph % (Auto) Garfield % (Auto) Eos % (Auto) Baso % (Auto) Neut # (Auto) Lymph # (Auto) Garfield # (Auto) Eos # (Auto) Baso # (Auto) Immature Gran # (Auto) PT 12.3 H INR 1.2 H APTT 24.8 PTT Ratio 0.9 Sodium Potassium Chloride Carbon Dioxide Anion Gap BUN Creatinine Est Cr Clr Drug Dosing Est GFR ( Amer) Est GFR (Non-Af Amer) BUN/Creatinine Ratio Glucose Calcium Magnesium Total Bilirubin AST ALT Alkaline Phosphatase Troponin I High Sens 17.9 Total Protein Albumin Globulin Albumin/Globulin Ratio Triglycerides Cholesterol LDL Cholesterol, Calc VLDL Cholesterol, Calc HDL Cholesterol Cholesterol/HDL Ratio Lipase SARS-CoV-2, RNA, NAAT NEGATIVE 06/21/22 06/21/22 06/21/22 06:09 06:09 06:09 WBC 6.43 RBC 4.16 L Hgb 14.8 Hct 42.4 MCV 101.9 H MCH 35.6 H MCHC 34.9 RDW Std Deviation 50.3 H RDW Coeff of Kathleen 13.3 Plt Count 254 MPV 8.6 L Immature Gran % (Auto) 0.3 Neut % (Auto) 64.7 Lymph % (Auto) 24.6 Garfield % (Auto) 8.1 Eos % (Auto) 2.0 Baso % (Auto) 0.3 Neut # (Auto) 4.16 Lymph # (Auto) 1.58 Garfield # (Auto) 0.52 Eos # (Auto) 0.13 Baso # (Auto) 0.02 Immature Gran # (Auto) 0.02 PT INR APTT 60.3 H* PTT Ratio 2.2 Sodium 137 Potassium 3.8 Chloride 104 Carbon Dioxide 25 Anion Gap 8 BUN 20 Creatinine 1.03 Est Cr Clr Drug Dosing 94.3 Est GFR ( Amer) 92.4 Est GFR (Non-Af Amer) 79.7 BUN/Creatinine Ratio 19.4 Glucose 118 H Calcium 8.7 Magnesium 1.9 Total Bilirubin AST ALT Alkaline Phosphatase Troponin I High Sens 16.9 Total Protein Albumin Globulin Albumin/Globulin Ratio Triglycerides 89 Cholesterol 197 LDL Cholesterol, Calc 124 VLDL Cholesterol, Calc 18 HDL Cholesterol 55 Cholesterol/HDL Ratio 3.6 Lipase SARS-CoV-2, RNA, NAAT
--- NOTE | 2022-06-21 10:43 | Cardiac Catheterization ---
Cardiac Cath Procedure Brief Procedure Date June 21, 2022 Pre-Procedure Diagnosis Pre-Procedure Diagnosis: Angina AUC Score AUC Score: 7 Post-Procedure Diagnosis Post-Procedure Diagnosis: Mild CAD and Normal LV Systolic Function Procedure(s) Performed Procedure(s) Performed: Coronary Angiography, Left Heart Cath and LV Angiography Picture Enlarger Wellington Graves MD Estimated Blood Loss Estimated Blood Loss: <15cc Medication(s) Medication(s): Fentanyl (12.5 mcg IV), Heparin (5000 units IV), Lidocaine 1% (Local infiltration access site), Nicardipine (250 mcg intra-arterial after arterial sheath insertion) and Versed (1 mg IV) Preliminary Findings Impression: Right dominant coronary anatomy with mild coronary atherosclerosis and no obstructive disease Preserved LV systolic function without wall motion abnormality, normal left end- diastolic pressure Recommendations Recommendations: Medical Therapy and/or Counseling Specimens Specimens: None Fluids (cc crystalloids) Fluids (cc crystalloids): 58 Anesthesia Start time: 1018 stop time: 1036 Procedural Complication(s) None Disposition PCU
--- NOTE | 2022-06-21 10:43 | Post Anesthesia Assessment ---
Date of Service June 21, 2022 Post Sedation Assessment Vital Signs Temp Pulse Pulse Resp BP BP Pulse Ox 06/21/22 09:47 70 16 132/85 98 06/21/22 07:00 67 06/21/22 07:39 36.9 C 74 18 163/90 H 99 06/21/22 03:30 36.6 C 70 18 129/84 97 06/21/22 01:36 72 06/20/22 22:48 36.9 C 79 18 154/90 H 96 06/20/22 22:06 76 20 96 06/20/22 21:56 78 20 149/105 H 96 06/20/22 20:00 72 20 152/94 H 96 06/20/22 19:00 159/94 H 06/20/22 18:59 70 24 95 06/20/22 17:54 96 06/20/22 17:54 87 20 95 06/20/22 17:04 95 06/20/22 17:04 68 20 95 06/20/22 17:04 36.8 C 68 20 148/96 H 95 O2 Del Method 06/21/22 09:47 Room Air 06/21/22 07:00 06/21/22 07:39 Room Air 06/21/22 03:30 06/21/22 01:36 06/20/22 22:48 Room Air 06/20/22 22:06 Room Air 06/20/22 21:56 Room Air 06/20/22 20:00 Room Air 06/20/22 19:00 06/20/22 18:59 06/20/22 17:54 Room Air 06/20/22 17:54 Room Air 06/20/22 17:04 Room Air 06/20/22 17:04 Room Air 06/20/22 17:04 Room Air Recovery Score Activity: Moves 4 extremities Respiration: Deep Breath/Cough Circulation: +/-20% PreAnes Value Consciousness: Fully Awake Oxygen Saturation: > 92% On Room Air Discharge Sedation Level of Care: Phase I Post Sedation Plan On clinical assessment, the patient appears to have tolerated the sedation without complications. Patient is recovering as anticipated. Patient will continue to be monitored by nursing and may be discharged when sedation discharge criteria are met per below protocol. Upon Completions of procedure up to 15 minutes continue every 5 minute vital signs and the P.A.R. score; then discharge to a Phase I or Fast Track to Phase II per the following guidelines: * Discharge Patient to appropriate Phase II area if PAR is 8 or greater or return to pre- procedure baseline. The post - procedure orders will be as directed. * If PAR score is less than 8 or not return to pre-procedure baseline then patient will follow Phase I monitoring till PAR is reached for Phase II. The Phase I may be done in procedure room or may call to secure a Phase I area. * If naloxone or flumazenil are used for reversal, hold in Phase I for continued monitoring from when last reversal dose was given for a minimum of 60 minutes or longer pending the nurse and/or physician discretion of patient condition before discharge to Phase II. Please call the Sedation Physician to re-evaluate and complete post-note for discharge to Phase II area. Do NOT discharge from procedure sedation or Phase 1 until post- sedation evaluation note is complete by procedure /sedation MD Sedation Discharge Instructions to be given to the patient at discharge to home.
--- NOTE | 2022-06-21 10:51 | Cardiac Catheterization ---
Cardiac Cath Procedure Full Procedure Date June 21, 2022 Pre-Procedure Diagnosis Pre-Procedure Diagnosis: Angina AUC Score AUC Score: 7 Post-Procedure Diagnosis Post-Procedure Diagnosis: Mild CAD and Normal LV Systolic Function Procedure(s) Performed Procedure(s) Performed: Coronary Angiography, Left Heart Cath and LV Angiography Funeral Director Wellington Graves MD Estimated Blood Loss Estimated Blood Loss: <15cc Medication(s) Medication(s): Fentanyl (12.5 mcg IV), Heparin (5000 units IV), Lidocaine 1% (Local infiltration access site), Nicardipine (250 mcg intra-arterial after arterial sheath insertion) and Versed (1 mg IV) Summary of Findings Impression: Right dominant coronary anatomy with mild coronary atherosclerosis and no obstructive disease Preserved LV systolic function without wall motion abnormality, normal left end- diastolic pressure Procedure: Left heart catheterization, coronary, LV angiography. Access: Right radial artery without difficulty Catheters: 6 Algerian long glide radial sheath, 5 Algerian [place], 5 Algerian straight pigtail Hemodynamics Rest Ao:: 122/75/95 Final Ao: 148/82/106 LV: 138/0/9 Recommendations Recommendations: Medical Therapy and/or Counseling Specimens Specimens: None Radiation Exposure (mGy) 882 Contrast (mls) 78 Fluids (cc crystalloids) Fluids (cc crystalloids): 58 Anesthesia Start time: 1018 stop time: 1036 Procedural Complication(s) None Disposition PCU I attest to the content of the Intraoperative Record and any orders documented therein. Any exceptions are noted below. ACC Data: Deburr Technician Cardiac Status Clinical evaluation leading to the procedure 57-year-old male with multiple cardiovascular risk factors including age gender hypertension hyperlipidemia and familial history of heart disease who suffered symptoms of acute nausea diaphoresis and chest pressure with transient ST elevation noted on telemetry and EKG during symptoms. CAD Presenation: Unstable angina Anginal Classification: CCS IV Heart Failure: No Cardiogenic Shock within 24 Hours: No Cardiac Arrest within 24 Hours: No Imaging Studies Past 6 Months: Yes Stress Studies Past 6 Months: No Standard Exercise Test: No Stress Echocardiogram: No Stress Testing w/SPECT MPI: No Cardiac CTA: No Coronary Anatomy Dominant: Right Left Main (% Stenosis): Normal LAD (% Stenosis): Proximal (20% with mild calcification) and Mid (Mild luminal irregularity) D1 (% Stenosis): Normal D2 (% Stenosis): Normal D3 (% Stenosis): Normal (Very small) Circumflex (% Stenosis): Proximal (30% with minimal calcification) OM1 (% Stenosis): Normal L PL1 (% Stenosis): Normal RCA (% Stenosis): Mid (20% with mild ectasia) R PDA (% Stenosis): Normal R PL1 (% Stenosis): Normal Left Ventricular Angiography EF (%): 60 Mitral Regurgitation: None Diagnostic Physicians Name: Wellington Graves MD Status: Urgent Closure Device Percutaneous Entry Location: Radial Closure Device: Radial Band Recommendations: Medical Therapy and/or Counseling
--- NOTE | 2022-06-21 13:14 | Electrocardiogram Report ---
Test Reason : Blood Pressure : / mmHG Vent. Rate : 068 BPM Atrial Rate : 068 BPM P-R Int : 144 ms QRS Dur : 100 ms QT Int : 424 ms P-R-T Axes : 013 029 048 degrees QTc Int : 450 ms Normal sinus rhythm Normal ECG When compared with ECG of 21-JUN-2022 05:26, No significant change was found Confirmed by Bairon Seo ([id number]) on 06/21/2022 1:14:13 PM Referred By: REFERRED SELF Confirmed By:aBiron Seo
--- NOTE | 2022-06-21 13:21 | CT Scan Report ---
HEAD CT NONCONTRAST CT DOSE: 537.48 mGy.cm HISTORY: Syncope TECHNIQUE: Multiaxial CT images of the head were performed without the use of intravenous contrast. A utomated exposure control was utilized for this study. A dose lowering technique was utilized adheri ng to the principles of ALARA. Comparison: None. Findings: Small left mastoid effusion. The paranasal sinuses and right mastoid air cells are clear. T he calvarium and skull base are intact. The ventricles and sulci are within normal limits. There is n o mass, hematoma, midline shift, or acute infarct. Impression: No acute intracranial abnormality. ACT 112: Negative or not required by law. Electronically signed by: Farhat Jiang M.D. 06/21/2022 1:19 PM
[2022-06-21] MEDS: SODIUM CHLORIDE 0.9% 1000ML 1,000 ML IV SCH (13:25)
--- NOTE | 2022-06-21 13:25 | Communication Note ---
Date of Service: June 21, 2022 Results of cardiac catheterization reviewed and discussed with patient. Mild coronary atherosclerosis present but no obstructive disease to account for patient's acute ST elevation during presentation event. Question vagally mediated versus coronary vasospasm Given hypertension we will add amlodipine 2.5 mg/day to losartan dosing. Urged alcohol moderation Patient previously declined increasing atorvastatin dosing. Would suggest adding Zetia either this admission or post discharge
[2022-06-21] MEDS: amLODIPine BESYLATE 5 MG TAB PO SCH (14:52)
--- NOTE | 2022-06-21 15:43 | Hospitalist Progress Note ---
Date of Service June 21, 2022 Assessment & Plan (1) Syncope: Plan: Syncope Likely Vasovagal CT head:No acute intracranial abnormality. Monitor on Tele May benefit for Zio monitor as outpatient May need EEG as well (Pt/family prefers to get it done as outpatient) ST elevation S/P Cardiac Cath:Mild coronary atherosclerosis Appreciate cardiology input Minimize alcohol use Added amlodipine to losartan for better blood pressure control Continue statin Add Zetia if patient agrees IV heparin discontinued Hyperlipidemia: Continue statin Depression: Continue duloxetine Hypertension: On losartan Added Amlodipine DVT Px: IV Heparin DCed SCDs for now Admission and Anticipated Discharge Date Admission Date: June 20, 2022 Subjective Patient is seen and examined at bedside States doing well this morning Offers no complaints Denies any chest pain, dyspnea, dizziness, nausea, abdominal pain Discussed with patient's family at bedside Review of Systems Review of Systems: All systems reviewed & are unremarkable except as noted in Subjective Physical Exam Physical Exam: Physical Exam: Vitals signs as noted above General Appearance: Obese, no apparent distress Head: normocephalic, Atraumatic Eyes: normal inspection, EOMI Neck: supple, Trachea midline Respiratory/Chest: Normal breath sounds, CTA, No accessory muscle use Cardiovascular: S1, S2, No murmur Abdomen/GI:Soft, Non tender, Bowel sounds present Extremities/Musculoskeletal:normal inspection, no edema Neurologic/Psych:AAOX3, grossly no focal neurological deficits Skin: normal color, warm Results & Data Results & Data ([facility]) Vital Signs (Past 12 Hours) Vital Signs Temp Pulse Pulse Resp BP BP Pulse Ox 06/21/22 15:23 36.7 C 64 18 136/80 96 06/21/22 14:51 74 18 133/83 95 06/21/22 13:58 36.8 C 68 19 130/82 93 06/21/22 12:45 77 16 117/77 93 06/21/22 12:15 77 18 146/90 H 93 06/21/22 11:45 65 18 145/93 H 96 06/21/22 11:28 66 18 141/90 H 93 06/21/22 11:13 36.9 C 70 18 143/90 H 93 06/21/22 11:00 66 20 138/96 93 06/21/22 10:45 67 20 140/99 92 06/21/22 09:47 70 16 132/85 98 06/21/22 07:00 67 06/21/22 07:39 36.9 C 74 18 163/90 H 99 O2 Del Method 06/21/22 15:23 Room Air 06/21/22 14:51 Room Air 06/21/22 13:58 Room Air 06/21/22 12:45 Room Air 06/21/22 12:15 Room Air 06/21/22 11:45 Room Air 06/21/22 11:28 Room Air 06/21/22 11:13 Room Air 06/21/22 11:00 Room Air 06/21/22 10:45 Room Air 06/21/22 09:47 Room Air 06/21/22 07:00 06/21/22 07:39 Room Air Laboratory Results Short CBC 06/20/22 06/21/22 Range/Units 17:25 06:09 WBC 6.91 6.43 (4.8-10.8) K/ul Hgb 15.8 14.8 (14.0-18.0) g/dl Hct 45.7 42.4 (40.1-51.0) % Plt Count 263 254 (130-400) K/uL BMP 06/20/22 06/21/22 17:25 06:09 Sodium 138 137 Potassium 4.3 3.8 Chloride 102 104 Carbon Dioxide 26 25 BUN 20 20 Creatinine 1.28 1.03 Glucose 129 H 118 H Calcium 9.7 8.7 Liver Function 06/20/22 Range/Units 17:25 Total Bilirubin 1.0 (0.2-1.0) mg/dl AST 39 (13-39) U/L ALT 55 H (7-52) U/L Alkaline Phosphatase 81 (34-104) U/L Albumin 4.6 (3.4-5.0) gm/dl
[2022-06-22 04:49] LABS: Hematocrit (blood only) 42.3 % (40.1-51.0); Hemoglobin 14.4 g/dl (14.0-18.0); Mean Corpuscular Hemoglobin 34.9 pg (25.0-34.0); Mean Corpuscular Volume 102.4 fL (80.0-100.0); Mean Platelet Volume 8.3 fL (9.4-12.4); Platelet Count 208 K/uL (130-400); RDW Coefficient of Variation 13.1 % (11.5-14.5); RDW Standard Deviation 50.1 fL (36.4-46.3); Red Blood Count 4.13 M/uL (4.63-6.08); White Blood Count 4.97 K/ul (4.8-10.8)
[2022-06-22 05:19] LABS: BUN Creatinine Ratio 18.1 (10-20); Calcium 8.5 mg/dl (8.5-10.1); Creatinine Clr Calc Pharmacy 92.5 ml/min; Est GFR (African American) 90.3 ml/min; Est GFR (Non-African American) 77.9 ml/min
[2022-06-22] MEDS: amLODIPine BESYLATE 5 MG TAB PO SCH (08:12)
[2022-06-22] MEDS: FUROSEMIDE 20 MG TAB PO SCH (08:13)
[2022-06-22] MEDS: ATORVASTATIN 20 MG TAB PO SCH (08:17)
[2022-06-22] MEDS: LOSARTAN POTASSIUM 50 MG TAB PO SCH (08:17)
[2022-06-22] MEDS: DULoxetine HCL 30 MG CAP PO SCH (08:17)
[2022-06-22] MEDS: FLUTICASONE PROPIONATE NA SPR 16 GM BTL SCH (08:18)
--- NOTE | 2022-06-22 11:15 | Cardiology Progress Note ---
Date of Service June 22, 2022 Assessment & Plan (1) ST elevation: (2) HTN (hypertension): (3) Hyperlipidemia: Plan Patient is a 57-year-old male with multiple cardiovascular risk factors including age gender family history hypertension hyperlipidemia and known moderate coronary atherosclerosis by prior coronary CT presents following syncopal spell preceded by chest pressure and diaphoresis. In route and ambulance had transient dynamic ST segment changes with ST elevation in inferior leads and ambulance and shortly after arrival in ER which promptly resolved. Findings concerning for acute coronary process. Coronary spasm or chronic vessel occlusion with transient hypotension possible but suspicious for coronary artery disease despite negative troponins Coronary angiography, LV angiography performed on 06/21/2022 uneventfully. Right radial access site healing Patient presented with symptoms of acute nausea diaphoresis and presyncope possibly vagally mediated with associated transient ST elevation. Coronary angiography has not demonstrated obstructive disease question component of coronary spasm versus vagally mediated changes. Patient notes intermittent neck arm and leg cramping chronically. Recommendations: Continue losartan and amlodipine now at 5 mg/day for hypertension and possible spasm component. Urged reduction in alcohol to 3 drinks or less per day Follow-up cardiology as outpatient 4 to 6 weeks. Stable for discharge today after ambulation Admission and Anticipated Discharge Date Admission Date: June 20, 2022 Subjective Patient seen and examined, chart, medications, telemetry reviewed. No complaints overnight no arrhythmias. No chest pains, shortness of breath, dizziness or lightheadedness. Physical Exam Constitutional: WD/WN, vitals as above + obese Eyes: PERRL, conjunctivae normal, anicteric sclerae ENMT: Mallampati Class: III Neck: trachea midline, no thyromegaly Respiratory: normal respiratory effort, lungs clear to auscultation Cardiovascular: RRR, no murmur, no edema Rate/Rhythm: regular rate and regular rhythm Heart Sounds: normal S1 and normal S2; no gallop and no murmur Palpation: normal PMI Vessels: normal carotid upstroke and radial pulses present; no JVD and no carotid bruit Extremities: no edema Gastrointestinal (Abdomen): normal bowel sounds, soft, nontender, no hepatosplenomegaly Musculoskeletal: no cyanosis or clubbing, extremities motor strength 5/5 Skin: no rashes, warm and dry Neurologic: PERRL, EOMI, accommodation nl, no face palsy, no dysarthria Psychiatric: A+Ox3, euthymic affect Results & Data ([facility]) Vital Signs (Past 12 Hours) Vital Signs Temp Pulse Pulse Resp BP Pulse Ox O2 Del Method 06/22/22 08:10 36.9 C 65 20 152/87 H 97 Room Air 06/21/22 23:27 70 Diagnostic Findings Coronary and LV angiography: 06/21/2022. Moderate coronary luminal irregularities consistent with patient's prior CT angiography without obstructive disease or vessel occlusion. Preserved LV systolic function
--- NOTE | 2022-06-22 12:25 | Hospitalist Progress Note ---
Date of Service June 22, 2022 Assessment & Plan (1) Syncope: Plan: Syncope Likely Vasovagal CT head:No acute intracranial abnormality. Monitor on Tele May benefit for Zio monitor as outpatient May need EEG as well (Pt/family prefers to get it done as outpatient) Advised to follow-up with cardiology upon discharge ST elevation S/P Cardiac Cath:Mild coronary atherosclerosis Appreciate cardiology input Minimize alcohol use Added amlodipine to losartan for better blood pressure control Continue statin IV heparin discontinued Hyperlipidemia: Continue statin Depression: Continue duloxetine Hypertension: On losartan Added Amlodipine Advised lifestyle changes DVT Px: IV Heparin DCed SCDs for now Admission and Anticipated Discharge Date Admission Date: June 20, 2022 Subjective Patient is seen and examined at bedside Denies any events overnight Also denies any chest pain, dyspnea, dizziness, nausea, abdominal pain No Arrhythmias on telemetry overnight. Review of Systems Review of Systems: All systems reviewed & are unremarkable except as noted in Subjective Physical Exam Physical Exam: Physical Exam: Vitals signs as noted above General Appearance: Obese, no apparent distress Head: normocephalic, Atraumatic Eyes: normal inspection, EOMI Neck: supple, Trachea midline Respiratory/Chest: Normal breath sounds, CTA, No accessory muscle use Cardiovascular: S1, S2, No murmur Abdomen/GI:Soft, Non tender, Bowel sounds present Extremities/Musculoskeletal:normal inspection, no edema Neurologic/Psych:AAOX3, grossly no focal neurological deficits Skin: normal color, warm Results & Data Results & Data ([facility]) Vital Signs (Past 12 Hours) Vital Signs Temp Pulse Resp BP Pulse Ox O2 Del Method 06/22/22 12:02 36.8 C 66 18 149/81 H 95 Room Air 06/22/22 08:10 36.9 C 65 20 152/87 H 97 Room Air Laboratory Results Short CBC 06/22/22 Range/Units 04:36 WBC 4.97 (4.8-10.8) K/ul Hgb 14.4 (14.0-18.0) g/dl Hct 42.3 (40.1-51.0) % Plt Count 208 (130-400) K/uL [facility] [place] 06/22/22 04:36 Sodium 138 Potassium 4.0 Chloride 107 Carbon Dioxide 26 BUN 19 Creatinine 1.05 Glucose 104 H Calcium 8.5
--- NOTE | 2022-06-22 12:31 | Discharge Summary ---
Date of Service June 22, 2022 Admission HPI Per Admitting Provider CHIEF COMPLAINT: Syncope. HISTORY OF PRESENT ILLNESS: This is a 57-year-old male with past medical history significant for allergic rhinitis, GERD, who presents with syncope. The patient says he was at a bar when he felt nauseous and diaphoretic. He went out and sat in chair when he suddenly remembered people helping him, made him lie down, someone told him that he was clenching his fist. Then he had an episode of diarrhea. The EMS was called in and he was on the way again felt nauseous and sweating. The EMS told him that his blood pressure was low, got an EKG, showed some ST elevations in the inferior leads and when he came to the ER, in the monitor, there were some ST elevations, by the time the EKG was done St elevations were improving. The patient is currently asymptomatic, resting comfortably, hemodynamically stable. Denies any headache. No dizziness, no blurred visions, no double visions, no earache, no runny nose, no sore throat, no cough, no difficulty swallowing. Appetite is okay. No chest pain, no shortness of breath. Currently, no nausea, no abdominal pain. Normal bowel and bladder movements. No swelling in the legs. No orthopnea. Otherwise, ambulates okay. The patient says he has stress test before the pandemic, which was unremarkable. He also had cardiac CT in January 2021, which showed some focal calcified plaque with luminal stenosis in the range of 20-30% in the mid LAD and proximal circumflex coronary artery, focal calcified plaques in the range of 20- 30%.Family history is significant for father had [place] in his 50s and brother had CABG. Admission Exam Per Admitting Provider PHYSICAL EXAMINATION: GENERAL: The patient is of moderate build, not in acute distress. VITAL SIGNS: Temperature 36.8, pulse 72, respiratory rate 20, blood pressure 152/94, oxygen 96% on room air. HEENT: Pupils equal, round and reactive to light. Oral mucosa moist. NECK: No JVD, no neck masses. CARDIOVASCULAR: S1 and S2 heard. Regular rate and rhythm. No murmur, no gallop. RESPIRATORY SYSTEM: Normal AP diameter. No accessory muscle use. No wheezing, no crackles. ABDOMEN: Soft, bowel sounds present, nontender, no distention. CENTRAL NERVOUS SYSTEM: Cranial nerves II-XII grossly intact, nonfocal. EXTREMITIES: No edema, no erythema. Principal Diagnosis Syncope Hypertension Discharge Data Allergies Allergy/AdvReac Type Severity Reaction Status Date / Time No Known Allergies Allergy Unverified 06/20/22 20:16 Consultations 06/21/22 08:00 Consult Cardiology Routine Procedures Performed Operation Date: 06/21/22 10:30 Actual Procedures p Cath, Left with Cors and Vent - Wellington Graves MD s Cineradiography w/Routine Exam - Wellington Graves MD Ordered Studies 06/21/22 09:53 CL Cath Imgs for PACS use only Routine 06/21/22 11:47 CT head/brain wo con Urgent Hospital Course (1) Syncope: Syncope Likely Vasovagal CT head:No acute intracranial abnormality. Monitor on Tele May benefit for Zio monitor as outpatient May need EEG as well (Pt/family prefers to get it done as outpatient) Advised to follow-up with cardiology upon discharge ST elevation S/P Cardiac Cath:Mild coronary atherosclerosis Appreciate cardiology input Minimize alcohol use Added amlodipine to losartan for better blood pressure control Continue statin IV heparin discontinued Hyperlipidemia: Continue statin Depression: Continue duloxetine Hypertension: On losartan Added Amlodipine Advised lifestyle changes DVT Px: IV Heparin DCed SCDs for now Total Time Total Time Spent Total Time Spent (In Minutes): 40 minutes Discharge Plan Discharge Items Patient Disposition: Home - Self-Care Reason For Visit: SYNCOPE Discharge Diagnosis: Syncope Hypertension Activity: Per Instructions section Exercise/Sports: Gradually increase as tolerated Non-emergency contact: Primary Care Provider and Wood Processing Worker Call non-emergency contact if: you have any medication questions, your symptoms worsen, your pain is concerning for you and you have a fever Follow-up/Referrals: Emiliano Teresa MD [Primary Care Provider] - (Date & Time 06/26/2022 1:40 PM Provider Eliel Fine [facility] ) Diet: Heart Healthy [place] Attending Provider Instructions: Follow-up with primary care physician on 06/26/2022 1:40 PM as scheduled Follow-up with your operations trainer Dr. Graves in 3 to 4 weeks as advised. -- Consider obtaining an electroencephalogram (EEG) as outpatient. -- Monitor your blood pressure regularly as advised and discussed with your physician for further adjustment of your medications as needed. --Minimize Alcohol use as advised Seek immediate medical attention if your symptoms reoccur or worsen Please take all medications as instructed on discharge list below. Please call if you have any questions or problems. You can reach a [facility] hospitalist on duty at [facility] 24 hours a day by calling [phone] Pending Studies at Discharge: No Stand-Alone Forms: [facility], Smoking Cessation Medications and DC Order Prescriptions: New amlodipine [Norvasc] 5 mg Tablet 5 mg PO QAM 30 Days Qty: 30 1RF Continued atorvastatin 20 mg tablet 20 mg PO DAILY furosemide 20 mg tablet 10 mg PO DAILY duloxetine 30 mg capsule,delayed release(DR/EC) 30 mg PO DAILY losartan 50 mg tablet 50 mg PO QAM fluticasone propionate 50 mcg/actuation spray,suspension 2 spray INTRANASAL QAM Rx Instructions: 2 sprays into each nostril every morning Discharge Orders: Discharge Order (Routine); Ordered 06/22/22 Ordered By: Bradley Flores Admission Data Admit Date/Time: 06/20/22 21:15 Attending Provider: Bradley Flores Admit Provider: Miguelito Ch Primary Care Provider: Emiliano Teresa Other Providers: Wellington Graves
--- NOTE | 2022-06-22 15:13 | Electrocardiogram Report ---
Test Reason : Blood Pressure : / mmHG Vent. Rate : 071 BPM Atrial Rate : 071 BPM P-R Int : 144 ms QRS Dur : 098 ms QT Int : 422 ms P-R-T Axes : 027 030 041 degrees QTc Int : 458 ms Normal sinus rhythm Normal ECG When compared with ECG of 21-JUN-2022 11:13, No significant change was found Confirmed by Bairon Seo ([id number]) on 06/22/2022 3:13:01 PM Referred By: REFERRED SELF Confirmed By:Bairon Seo
[2022-06-23] MEDS ORDERED: amLODIPine BESYLATE 5 MG TAB PO SCH (09:00)
== END 2022-06-22 14:17 | disposition home or self-care (01) | DRG 287 ==
LOC: ED 17:12 → 4W 21:15 → SUATTDRO 21:15 → 4W 21:56 → UNDODISIN 06-22 12:41